=== PATIENT | female | born 1985 | race Caucasian/White ===

== ENCOUNTER 2016-12-05 19:18 | Emergency (ER) | payer SELFPAY ==
--- NOTE | 2016-12-25 21:33 | ER ---
ADMIT: 12/05/2016 RM/LOC: ER [facility] MR#: [id number] [id number] [place], [place] [id number] ITALO KOWALSKI Effie [address] [address] Emergency Room Report SEX: F AGE: 31 : 1985 DATE: 12/05/2016 ADDENDUM: HISTORY OF PRESENT ILLNESS: This patient comes to the ER because she would like to detox. She states she drinks daily about half a gallon of whiskey, and she is a binge drinker who will go up to 7 days on a binge. She does have a history of having alcoholic withdrawal seizures, has not had 1 recently. She went to detox, her blood alcohol was in the high 300s, so they sent her here for medical clearance. She is alert, able to protect her airway, ambulates without any difficulty and speaks and answers questions appropriately. DIAGNOSIS: Alcoholism. DISCUSSION: I did write a note that she has stable vital signs and is stable to start detox program. Please see my T-sheet. TIMMY Cochran / Ortiz Ontiveros MD / modl JOB #: [id number] CC: Félix Bustillos MD, Attending Physician Jimena Herrera MD, Family Physician
== END 2016-12-05 20:15 | disposition home or self-care (01) ==
LOC: ER 19:18
DX: F10.229 Alcohol dependence with intoxication, unspecified (principal); Z79.899 Other long term (current) drug therapy